=== PATIENT | male | born 1935 | race Caucasian/White ===

== ENCOUNTER 2016-09-04 17:16 | Emergency (ER) | payer MEDICARE, OTHER ==
[~2016-09-04 17:16] MED LIST: ASA CHILDREN'S81 MG PO; CARBIDOPA-LEVO1 EAC4 PO; CARBIDOPA-LEVO1 EAC6 PO; LASIX DPS20 MG PO; PLAVIX75 MG PO
--- NOTE | 2016-09-09 13:49 | ER ---
ADMIT: 09/04/2016 RM/LOC: ER [facility] MR#: [id number] [id number] [place] [address] Emergency Room Report SEX: M AGE: 81 : 1935 DATE: 09/04/2016 HISTORY OF PRESENT ILLNESS: The patient is an 81-year-old male with a past medical history of Parkinson disease, CVA, hypertension, diabetes, who was brought to the ER from assisted living facility because of 2 episodes of left lower quadrant abdominal pain, which was sharp and happened when bending forward this morning, and when the patient stood up, the pain just lasted less than a minute, had resolved by itself. Both episodes happened when the patient bends forward. The patient at the moment has no pain or discomfort and the daughter called the facility and wanted the patient to be evaluated in the ER. PHYSICAL EXAMINATION: GENERAL: In the ER, patient is alert oriented to person, place, and time, lying in bed in no obvious pain or distress. VITAL SIGNS: Stable. HEAD AND NECK: Pupils are 3 mm, reactive to light bilaterally. Normal extraocular movements. No facial drooping. Wet mucous membranes. Conjunctiva is not pale. Sclerae are not icteric. Neck is soft with no tenderness. Trachea midline. No bruit on the neck. CHEST: Bilateral equal breath sounds. HEART: Normal S1, S2 rhythm without any murmurs or extra sounds or gallops. ABDOMEN: Soft and nontender without any rebound with normal bowel sounds in all quadrants. EXTREMITIES: The patient can move all extremity and can hold all the extremities up and move it for more than a minute each. The patient has mild rigidity in all extremities, which could be due to his parkinsonism any tremors. LAB DATA: Lab works were noncontributory and the UA was also negative for infection, RBC just positive for 300 glucose level. Upright abdomen did not show any air-fluid level or any signs of obstruction or ileus. The patient received the dosage of carbidopa levodopa in the ER as the patient missed the dose and became more rigid and difficulty with moving. The patient is stable to be discharged to the nursing care facility and was advised to be followed up by the primary doctor as needed. The patient and daughter at bedside, they acknowledged they understood the plan and agreed with it. DIAGNOSIS: Abdominal pain, not otherwise specified, resolved. Paxton Tomlin MD/ eusebio JOB #: [id number] CC: Gabe Mejia MD, Attending Physician Arlyn Silva MD, Family Physician
== END 2016-09-04 20:20 | disposition home or self-care (01) ==
LOC: ER 17:16
DX: R10.32 Left lower quadrant pain (principal); G20 Parkinson's disease; I10 Essential (primary) hypertension; E11.9 Type 2 diabetes mellitus without complications; Z86.73 Personal history of transient ischemic attack (TIA), and cerebral infarction without residual deficits; Z91.041 Radiographic dye allergy status